=== PATIENT | female | born 1940 | race Caucasian/White ===

== ENCOUNTER 2025-05-28 13:23 | Outpatient (AMB) | payer MEDICARE, SELFPAY ==
--- NOTE | 2025-05-28 13:29 | MHC.OFFVIS ---
Intake Visit Reasons: 6 month f/u Accompanied by: Spouse Allergies nabumetone Allergy (Unknown, Verified 05/27/25 07:46) Unknown theophylline Allergy (Unknown, Verified 05/27/25 07:46) Unknown HPI Comments Details: She was living at home with her . She fell down stairs about 3 weeks ago and was seen at [place], found to have UTI. Head CT and ankle XR apparently negative, bruised R ankle. Safety gate in front of stairs now. Memory stable, may be slightly declining some. Sometimes will ask to go home when she is home and will ask who he is. Occasionally wanders around the house and cannot find the bathroom. Doors are secured and does not try to leave house. Sleep was up and down, has some urinary incontinence at night. Mood was okay. Does not like to shower and needs assistance dressing. Appetite was okay. At times does not recognize of 16-years and will ask him who he is. Occasionally gets frustrated if she is unable to explain herself. Wears tracking device during day, and daughter have location. Door has bolt so she does not wander out and has alarms throughout the house. No issues with wandering or getting out of house. Left the house once in summer 2021. Has not recognized the house in the past. Gets diplopia at certain distance. [facility] Medical History (Updated 05/28/25 @ 13:33 by Staci Do CNP) Pacemaker Dry eye syndrome Depression Carpal tunnel syndrome Alzheimer disease MCI (mild cognitive impairment) Review of Systems Const Denies chills, Denies daytime sleepiness, Denies difficulty sleeping, Denies fatigue, Denies fever(s), Denies frequent falls, Denies headache(s), Denies increased appetite, Denies poor appetite, Denies snoring, Denies weakness, Denies weight gain and Denies weight loss Eyes Denies loss of vision ENT Denies vertigo, Denies dizziness, Denies headache(s) and Denies neck pain Card Denies chest pain at rest, Denies chest pain with activity, Denies syncope, Denies leg edema, Denies palpitations, Denies dyspnea and Denies dyspnea on exertion Resp Denies cough, Denies dyspnea, Denies dyspnea on exertion and Denies snoring GI Denies abdominal pain, Denies constipation, Denies heartburn, Denies diarrhea and Denies nausea Denies urinary frequency, Reports urinary incontinence and Denies urinary urgency Musc Denies abnormal gait, Denies back pain, Denies myalgias, Denies arthralgias, Denies neck pain, Denies numbness and Denies tingling Neuro Denies abnormal gait, Denies vertigo, Denies dizziness, Denies syncope, Denies frequent falls, Denies headache(s), Denies lack of coordination, Denies loss of vision, Reports memory loss, Denies numbness, Denies Other visual disturbances, Denies restless legs, Denies seizure-like activity, Denies tingling, Denies paresthesias, Denies tremor(s) and Denies weakness Psych Denies anxiety, Denies depression, Denies auditory hallucinations, Reports memory loss and Denies visual hallucinations Endo Denies fatigue and Denies palpitations Physical Exam Const Other: General Appearance:? normal, in no acute distress. Heart:? S1, S2 normal, no murmurs. Lungs:? clear anteriorly and posteriorly. Musculoskeletal:? normal. Extremities:? no edema. Psych:? alert, as below Neuro Other: Abnormal Neurological Findings:?[facility] 09/12. Unable to draw a clock or name animals from a picture. She is able to tell me she is here with her and his name (Toby). She is unable to tell me how old she is or her birthday Mental Status: alert, as below. Cranial Nerves: Pupils are equal, round, and reactive to light. External ocular muscles are intact. Visual hahn are full, no ptosis. Face is symmetrical, no facial weakness or droop. Facial sensations are normal. Tongue protrudes in midline. Palate elevates symmetrically. Shoulder shrugging is normal Motor Examination: Normal muscle tone, bulk and strength. No atrophy or fasciculations. No drift of the extended upper extremities. DTR 2+. Plantars are flexor. Straight Leg Raisin degrees. Sensory Exam: Normal light touch, temperature, pinprick, vibration, and joint-position sensations. Rhomberg sign is absent. Coordination: No ataxia. No titubation. Qcyxjm-hq-zpjf, smpu-huis-wwbx test, and rapid alternating movements were normal. Gait Exam: In wheelchair Cerebellar Signs: Rewewt-yl-atej and ybiv-zv-bxim is normal. No dysdiadochokinesia. Extrapyramidal System: No tremor, rigidity with normal facial expressions. No bradykinesia. No bradyphrenia. Normal arm swing and posture. No propulsion or retropulsion. Speech: Normal. No dysphasia or dysarthria. MMSE Level of Consciousness: Alert. Orientation: Person only Registration: Able to register 3 objects. Attention: Unable to do serial 7s Recall: Able to recall 0 out of 3 objects. Language: Normal spontaneous speech, fluency, repetition, naming, comprehension, reading, and writing. Total Score: 30. Assessment & Plan Assessment & Plan (1) Alzheimer disease: Code(s): G30.9 - Alzheimer's disease, unspecified; F02.80 - Dementia in other diseases classified elsewhere, unspecified severity, without behavioral disturbance, psychotic disturbance, mood disturbance, and anxiety Category: Medical Plan: Continue donepezil 10mg 1 tablet at bedtime. Contine memantine 10mg 1 tablet twice a day. Plan . Medications: New memantine 10 mg PO BID 180 tabs 3RF 90 days donepezil 10 mg PO BEDTIME 90 tabs 1RF 90 days Coding Level of Care Code Est Pt Level 4 (83264) Diagnoses Alzheimer disease G30.9; F02.80
--- OUTSIDE RECORDS SUMMARY | 2025-05-28 14:46 | XMS_ITS | Clinical Summary ---
Author Organization [address] [facility] Address [address] [place] [address] Phone Care Team Providers Care [place] Name Role Phone Dominik Rao MD Primary Care Provider [phone] Allergies Active Allergy Reactions Criticality Noted Date Comments Nabumetone Rash 07/12/2018 Sulfamethoxazole-Trimethoprim Nausea And Vomiting 07/12/2018 Theophylline Palpitations 06/15/2022 Trimethoprim 05/07/2021 Medications atorvastatin (LIPITOR) 10 mg tablet Take 10 mg by mouth daily. Active estrogens, conjugated (PREMARIN VAGL) Place vaginally. Active calcium carb/mag/vitamin D2 (CALCIUM-MAGNESI UM-VITAMIN D2 ORAL) Take 1 tablet by mouth daily. Active omega-3 fatty acids (FISH OIL CONCENTRATE ORAL) Take 1,000 mg by mouth daily. Active multivitamin (Multiple Vitamins) tablet Take 1 tablet by mouth daily. Active donepeziL (ARICEPT) 10 mg tablet Take 10 mg by mouth at bedtime. Active memantine (NAMENDA) 10 mg tablet Take 10 mg by mouth 2 times daily. At 9 AM & 9PM Active lisinopriL (PRINIVIL,ZESTRI L) 5 mg tablet Take 5 mg by mouth daily. Active aspirin 81 mg chewable tablet Take 81 mg by mouth daily. Active Active Problems Problem Noted Date Diagnosed Date Atrioventricular block, complete (CMS/HCC V24, C MS/HCC V28) 06/15/2022 Hyperlipidemia 06/15/2022 Hypertension 06/15/2022 LBBB (left bundle branch block) 06/15/2022 SSS (sick sinus syndrome) (CMS/HCC V24, CMS/HCC V28) 05/07/2021 Osteoarthritis 07/12/2018 Overview (12/27/2024): DX:Osteoarthritis; COMMENT: Cervical & Lumbar Spine Cervical & Lumbar Spine Osteopenia 07/12/2018 Overview (12/27/2024): DX:Osteopenia Dementia without behavioral disturbance ([facility] V24, [facility] V28) 07/12/2018 Encounters Date Type Department Care Team Description 04/03/2025 2:35 PM EDT Ancillary Procedure [facility] [address] [facility] [address] [place] [address] from Last 3 Months Surgical History Surgery Date Site/Laterality Comments BREAST BIOPSY Left PROCEDURE: BX BREAST; PERC NEEDLE CORE W/IMAG GUID; COMMENT: X 3 PACEMAKER IMPLANT 02/2013 PROCEDURE: HISTORICAL PACEMAKER CATARACT EXTRACTION Bilateral PROCEDURE: HISTORICAL CATARACT REMOVAL BREAST LUMPECTOMY 04/20/2004 Left PROCEDURE: HISTORICAL BREAST LUMPECTOMY TONSILLECTOMY PROCEDURE: HISTORICAL TONSILLECTOMY DENTAL SURGERY PROCEDURE: AK UNLISTED PROCEDURE DENTOALVEOLAR STRUCTURES WRIST SURGERY PROCEDURE: HISTORICAL WRIST SURGERY; COMMENT: Wrist Excision Of Ganglion Medical History Medical History Date Comments Osteopenia 07/12/2018 DX:Osteopenia Dementia ([facility] V24, [facility] V28) 07/12/2018 DX:Dementia ([facility]) 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 07/12/2018 DX:History of lobular carcin susan in situ (LCIS) of breast; COMMENT: 2003 Left, Lumpectomy, s/p Tamoxifen x 5 years Osteoarthritis 07/12/2018 DX:Osteoarthriti s; COMMENT: Cervical & Lumbar Spine Pacemaker 07/12/2018 DX:Pacemaker; CO MMENT: Inserted 2012 Abdominal pain, suprapubic DX:Ab dominal pain, suprapubic ALT (SGPT) level raised DX:ALT ( SGPT) level raised Cognitive impairment DX:Cognitiv e impairment Joint pain, hip DX:Joint pain, h ip Postmenopausal atrophic vaginitis DX:Postmenopausal atrophic vaginitis Rosacea DX:Rosacea Seborrheic keratosis DX:Seborrhe ic keratosis Urinary tract infection DX:Urina ry tract infection Family History Medical History Relation Name Comments Other: Jaw Cancer Father Stomach Ca ncer Diabetes Other mellitus, type 2 Lung cancer Other Multiple sclerosis Other Other: [place] Gastric Other Relation Name Status Comments Father Other Social History Tobacco Use Types Packs/Day Years Used Date Smoking Tobacco: Never Smokeless Tobacco: Never Alcohol Use Standard Drinks/Week Comments Not Currently 0 (1 standard drink = 0.6 oz pur e alcohol) Comments Unknown Sex and Gender Information Value Date Recorded Sex Assigned at Not on file Legal Sex Female 8:35 AM EST Gender Identity Not on file Sexual Orientation Not on file Obstetrics History Last Filed Vital Signs Vital Sign Reading Time Taken Comments Blood Pressure 150/68 07/21/2023 10:53 AM EDT Si tting L Arm Pulse 60 07/21/2023 10:53 AM EDT Temperature - - Respiratory Rate - - Oxygen Saturation - - Inhaled Oxygen Concentration - - Weight 63.5 kg (140 lb) 07/21/2023 10:53 AM EDT Height 157.5 cm (5' 2 ) 07/21/2023 10:53 AM EDT Body Mass Index 25.61 07/21/2023 10:53 AM EDT Plan of Treatment Upcoming Encounters Date Type Department Care Team (Late st Contact Info) Description 06/24/2025 2:00 PM EDT Ancillary Procedure [facility] - [address] [place] [address] Health Maintenance Due Date Last Done Comments RSV Immunization Adult Patients (1 - 1-dose 75+ series) 2016 Cholesterol Screening (Lipid Panel) 10/23/2022 Depression Screening 10/23/2022 Falls Risk Assessment 10/23/2022 Medicare Annual Wellness Visit 10/23/2022 Osteoporosis Screening (Bone Density Screening) 10/23/2022 Social Influencers of Health Screening 10/23/2022 Hypertension/CHF/CAD Annual BMP Blood Test 10/27/2022 COVID-19 Vaccine (8 - Pfizer risk season) 2025 08/22/2024, 09/01/2023, 08/18/2022, Additional history exists Influenza Vaccine (#1) 2025 , 09/01/2023, 08/18/2022, Additional history exists DTaP,Tdap,and Td Vaccines (2 - Td or Tdap) 05/25/2033 05/25/2023 Zoster Vaccines Completed 04/14/2019, 01/12/2019 Pneumococcal Vaccine: 50+ Years Completed 05/25/2023 HIB Vaccines Aged Out No longer eligi ble based on patient's age to complete this topic HPV Vaccines Aged Out No longer eligi ble based on patient's age to complete this topic Hepatitis A Vaccines Aged Out No long er eligible based on patient's age to complete this topic Hepatitis B Vaccines Aged Out No long er eligible based on patient's age to complete this topic IPV Vaccines Aged Out No longer eligi ble based on patient's age to complete this topic MMR Vaccines Aged Out No longer eligi ble based on patient's age to complete this topic Meningococcal ACWY Vaccine Aged Out N o longer eligible based on patient's age to complete this topic Meningococcal B Vaccine Aged Out No l onger eligible based on patient's age to complete this topic RSV Immunization Patients Under 20 months Aged Out No longer eligible based on patient's age to complete this topic Varicella Vaccines Aged Out No longer eligible based on patient's age to complete this topic Medical Devices Implanted Type Area Mapping Analyst Device Identifier Shelf Expiration Date Model / Serial / Lot [id number] 2272 Assurity Mri(Tm) [id number] Implanted: (Quantity not on file) Cardiac Pacemaker [facility] [employer] 2272 ASSURITY MRI(TM) / [id number] / Procedures Procedure Name Priority Date/Time Associated Diagnosis Comments CARDIAC DEVICE CHECK- REMOTE- MURJ Routine 04/03/2025 2:30 PM EDT from Last 3 Months Results * Cardiac device check - Remote- MURJ (04/03/2025 2:30 PM EDT) Date Time Interrogation Session [id number] CV DEVICE CHECK Type Interrogation Session Remote Scheduled CV DEVICE CHECK Implantable Pulse Generator Mapping Analyst [employer] CV DEVICE CHECK Implantable Pulse Generator Type IPG CV DEVICE CHECK Implantable Pulse Generator Model 2272 Assurity MRI(TM) CV DEVICE CHECK Implantable Pulse Generator Serial Number [id number] CV DEVICE CHECK Implantable Pulse Generator Implant Date [id number] CV DEVICE CHECK Battery Remaining Percentage 69.00 CV DEVICE CHECK Battery Remaining Longevity 85.0 CV DEVICE CHECK Battery Voltage 3.020 CV D EVICE CHECK Battery [employer]IVE Trigger 2.600 CV DEVICE CHECK Battery Status Middle of Service CV DEVICE CHECK Ten Statistic RA Percent Paced 28.00 CV DEVICE CHECK Ten Statistic RV Percent Paced 1.00 CV DEVICE CHECK Atrial Tachy Statistic AT/AF [place] Percent 0.00 CV DEVICE CHECK Lead Channel Sensing Intrinsic Amplitude 3.400 CV DEVICE CHECK Lead Channel Setting Sensing Sensitivity 0.50 CV DEVICE CHECK Lead Channel Impedance Value 480 CV DEVICE CHECK Lead Channel Pacing Threshold Amplitude 0.500 CV DEVICE CHECK Lead Channel Pacing Threshold Pulse Width 0.5 CV DEVICE CHECK Lead Channel RA Pacing Threshold Date 2025-03-21 CV DEVICE CHECK Lead Channel Setting Pacing Amplitude 1.500 CV DEVICE CHECK Lead Channel Setting Pacing Pulse Width 0.5 CV DEVICE CHECK Lead Channel Sensing Intrinsic Amplitude 4.500 CV DEVICE CHECK Lead Channel Setting Sensing Sensitivity 2.00 CV DEVICE CHECK Lead Channel Impedance Value 290 CV DEVICE CHECK Lead Channel Pacing Threshold Amplitude 1.250 CV DEVICE CHECK Lead Channel Pacing Threshold Pulse Width 0.5 CV DEVICE CHECK Lead Channel RV Pacing Threshold Date 2025-03-21 CV DEVICE CHECK Lead Channel Setting Pacing Amplitude 1.500 CV DEVICE CHECK Lead Channel Setting Pacing Pulse Width 0.5 CV DEVICE CHECK Ten Setting Mode (NBG Code) DDDR CV DEVICE CHECK Ten Setting Lower Rate Limit 60 CV DEVICE CHECK Ten Setting AT Mode Switch Rate 180 CV DEVICE CHECK Ten Setting Maximum Tracking Rate 120 CV DEVICE CHECK Ten Setting Maximum Sensor Rate 120 CV DEVICE CHECK Ten Setting PAV Delay 180 CV DEVICE CHECK Ten Setting SHAYLA Delay 170 CV DEVICE CHECK Date of Service 2025-04-03 CV DEVICE CHECK Anatomical Region Laterality Modality Device Interroga tion 03/21/2025 2:00 AM EDT Impressions 04/03/2025 2:27 PM EDT Normal Remote: No Events * Normal Device Function * Alerts or events: None * Battery: Battery is at 69%, 7.08 yrs * Sensing, impedance and thresholds reviewed * Programmed parameters reviewed * Presenting rhythm reviewed * Heart Rate Histograms reviewed * No significant changes noted Narrative Procedure Note Magdalene Recio MD - 04/03/2025 IMPRESSION: Normal Remote: No Events * Normal Device Function * Alerts or events: None * Battery: Battery is at 69%, 7.08 yrs * Sensing, impedance and thresholds reviewed * Programmed parameters reviewed * Presenting rhythm reviewed * Heart Rate Histograms reviewed * No significant changes noted Magdalene Recio MD CV IMPLANTABLE CARDIAC DEV ICE PROCEDURES Final Result from Last 3 Months Insurance [employer] Care Teams [place] Relationship Specialty Start Date End Date Dominik Rao MD PCP - General Internal Medicine 02/27/18
== END 2025-05-28 14:02 | disposition home or self-care (01) ==
PROVIDERS: PCP Internal Medicine; Referring Provider Internal Medicine; Visit Provider Registered Nurse
DX: G30.9 Alzheimer's disease, unspecified (principal); F02.80 Dementia in other diseases classified elsewhere, unspecified severity, without behavioral disturbance, psychotic disturbance, mood disturbance, and anxiety
CPT/HCPCS: 99214

== ENCOUNTER → 2025-05-28 13:23 | Outpatient (BNVA) | payer MEDICARE, SELFPAY | PROVIDERS: PCP Internal Medicine; Referring Provider Internal Medicine; Visit Provider Registered Nurse | DX: G30.9 Alzheimer's disease, unspecified (principal); F02.80 Dementia in other diseases classified elsewhere, unspecified severity, without behavioral disturbance, psychotic disturbance, mood disturbance, and anxiety | CPT/HCPCS: 99212 ==